=== PATIENT | female | born 1945 | race Caucasian/White ===

== ENCOUNTER 2021-02-23 09:22 | Inpatient (IN) ==
--- NOTE | 2020-12-24 16:01 | PAT Medication Instructions ---
Medication Instructions Date of Service December 24, 2020 Home Medications aspirin [Aspir-81] 81 mg PO QAM calcium carbonate-vitamin D3 [Caltrate 600 plus D] 1 tab PO QAM cholecalciferol (vitamin D3) [Vitamin D3] 50 mcg PO QAM cyanocobalamin (vitamin B-12) 500 mcg PO QAM ezetimibe 10 mg PO QAM gabapentin 100 mg PO BID metoprolol tartrate 25 mg PO BID dhpawdskictx-zxhsjsav-npkqev [Centrum Silver] 1 tab PO QAM pantoprazole 40 mg PO QAM pravastatin 20 mg PO QAM DO NOT take the morning of surgery calcium carbonate-vitamin D3 [Caltrate 600 plus D] 1 tab PO QAM cholecalciferol (vitamin D3) [Vitamin D3] 50 mcg PO QAM cyanocobalamin (vitamin B-12) 500 mcg PO QAM tzcprevdqxif-xatrymgq-lkqzvk [Centrum Silver] 1 tab PO QAM Take morning of surgery With a small sip of water, OTHERWISE NOTHING TO EAT OR DRINK AFTER MIDNIGHT: aspirin [Aspir-81] 81 mg PO QAM ezetimibe 10 mg PO QAM gabapentin 100 mg PO BID metoprolol tartrate 25 mg PO BID pantoprazole 40 mg PO QAM pravastatin 20 mg PO QAM Take evening before surgery gabapentin 100 mg PO BID metoprolol tartrate 25 mg PO BID Other Notes If you have any questions please call us at [phone] or [phone] or [phone] or [phone]
--- NOTE | 2020-12-30 12:40 | Anesthesiology Consultation ---
Date of Service December 30, 2020 Assessment & Plan (1) Encounter for pre-operative examination: Chart Review Chart Review: Pending: Refer to Additional Notes / Consult section (surgeon ordered cardio clearance on 01/05 and preop Covid testing ) and Patient seen in Pre Admission Testing Awaiting cardio clearance appt on 01/05/21 Per PAT appt on 12/30/20, patient denies any recent travel. No known Covid positive contacts or Covid related symptoms. Pt did have Covid infection in Sep 2020 (had cold symptoms- symptoms have since resolved). Preop Covid testing 01/19/21=will await results. Educated on importance of self quarantining, social distancing and wearing mask in public both for the patient and household contacts. Teaching & Discussion Pre-Anesthesia Teaching/Discussion Notes: Instructed NPO after midnight before surgery,except medications with 15 cc of water. Medication instructions provided according to the PAT guidelines. History Surgery Operation Date: 01/26/21 10:50 Proposed Procedures p Right Total Hip Arthroplasty Uncemted Anterior - Gabe Keller DO Height/Weight Height: 5 ft 7 in Weight: 85.5 kg Allergies Allergy/AdvReac Type Severity Reaction Status Date / Time ticagrelor [From Brilinta] Allergy Severe Difficulty Verified 12/22/20 08:33 Breathing Dyckcsq-Bsj-Agz Reductase Allergy Intermediate Cramping Verified 12/22/20 08:33 Inhibitor of the Muscles Medications Home Medications Medication Instructions Recorded Confirmed Last Taken aspirin [Aspir-81] 81 mg PO QAM 12/22/20 12/22/20 Unknown calcium carbonate-vitamin D3 1 tab PO QAM 12/22/20 12/22/20 Unknown [Caltrate 600 plus D] cholecalciferol (vitamin D3) 50 mcg PO QAM 12/22/20 12/22/20 Unknown [Vitamin D3] cyanocobalamin (vitamin B-12) 500 mcg PO QAM 12/22/20 12/22/20 Unknown ezetimibe 10 mg PO QAM 12/22/20 12/22/20 Unknown gabapentin 100 mg PO BID 12/22/20 12/22/20 Unknown metoprolol tartrate 25 mg PO BID 12/22/20 12/22/20 Unknown eluxcoyvkddt-cbfxsbsw-xckxco 1 tab PO QAM 12/22/20 12/22/20 Unknown [Centrum Silver] pantoprazole 40 mg PO QAM 12/22/20 12/22/20 Unknown pravastatin 20 mg PO QAM 12/22/20 12/22/20 Unknown Past Medical History Medical History (Updated 12/31/20 @ 07:42 by Lamar Licona PA-C) CAD (coronary artery disease) S/p 2 stents 2018 (LAD and diagonal) Per pt- 1-2 months after stents were placed- additional cath done- showing one of the stents did collapse but no intervention was needed GERD (gastroesophageal reflux disease) Well controlled and stable with med History of COVID-19 SEP 2020 Hyperlipidemia Hypertension Pt denies issues with BP- on Metoprolol due to CAD Osteoarthritis Exercise / Class Metabolic Activity II 4-5 Yardwork/Stairs/Walk up hill (one flight of stiars - no chest pain or SOB ) Past Family History Family History Grandmother Diabetes Past Surgical History Surgical History (Updated 12/30/20 @ 12:56 by Lamar Licona PA-C) History of cholecystectomy History of colonoscopy History of esophagogastroduodenoscopy (EGD) History of heart artery stent x2 in 2018 > [facility] History of lumbar fusion History of tonsillectomy History of tooth extraction Past Anesthesia History No Hx of Anesthesia Complications and No Family Hx of Anesthesia Complications History of PONV No Hx of PONV and No Hx of Motion Sickness Social History Smoking Status: Never smoker Do You Dip or Chew Tobacco: No Hx Alcohol Use: No Hx Substance Use: No substance use type: does not use Review of Systems Patient denies chest pain, shortness of breath, dyspnea on exertion, cough, wheezing, palpitations. No hx of seizures, stroke, apnea/snoring. No hx of blood clots or blood transfusions Physical Exam Vital Signs VITALS BP 116/74 P 63 TEMP 97.4 SP02 97% RESP 16 Constitutional no acute distress ENMT Mouth: no TMJ clicking Thyromental Distance: < 3.5 Finger Breadths (2.5) Mallampati Class: I Denies loose or missing teeth Neck + limited neck extension (moderate ) Respiratory normal respiratory effort; no respiratory distress Auscultation: lungs clear to auscultation bilaterally; no wheezes Cardiovascular Rate/Rhythm: regular rate and regular rhythm Heart Sounds: no murmur Vessels: no carotid bruit Musculoskeletal Spine: no pain with cervical ROM Extremities: extremities normal to inspection Psychiatric Orientation: alert Testing Laboratory Results 12/30/20 13:10 12/30/20 13:10 PT 10.1 Seconds (9.0-12.0) 12/30/20 13:10 INR 1.0 (0.9-1.1) 12/30/20 13:10 APTT 26.3 Seconds (21.0-31.0) 12/30/20 13:10 Hemoglobin A1c 5.6 % (4.5-5.6) 12/30/20 13:10 Urine Color Yellow 12/30/20 Unknown Urine Appearance Clear (Clear) 12/30/20 Unknown Urine pH 5.5 (4.5-7.5) 12/30/20 Unknown Ur Specific [place] 1.023 (1.000-1.030) 12/30/20 Unknown Urine Protein Negative (Negative) 12/30/20 Unknown Urine Glucose (UA) Negative (Negative) 12/30/20 Unknown Urine Ketones Trace (Negative) H 12/30/20 Unknown Urine Nitrite Negative (Negative) 12/30/20 Unknown Ur Leukocyte Esterase Negative (Negative) 12/30/20 Unknown Blood Type O Positive 12/30/20 13:10 Antibody Screen NEGATIVE 12/30/20 13:10 Electrocardiogram Date: 12/30/20 Findings: + NSR @ (63bpm) Nonspecific ST and T wave abnormality Chest X-Ray Date: 12/30/20 Findings: + NAD and + cardiomegaly (mild ) Superficial vascular calcifications are noted.
--- NOTE | 2020-12-30 13:49 | XRay Report ---
XR chest Pre-admission PA/Lat HISTORY: Preop. COMPARISON: None. FINDINGS: Superficial vascular calcifications are noted. There is an old mild superior endplate compr ession deformity within the upper thoracic spine. No pleural effusions. No pneumothorax. No focal tono g consolidations to suggest pneumonia. No evidence for pulmonary edema. The cardiac silhouette is mil dly enlarged. IMPRESSION: Mild cardiomegaly. Otherwise, no acute process within the chest. ACT 112: Negative or not required by law. Electronically signed by: All Kirkland M.D. 12/30/2020 1:48 PM
[2020-12-30 14:26] LABS: Basophils # (auto) 0.02 K/uL (0-0.2); Basophils % (auto) 0.3 %; Eosinophils # (auto) 0.12 K/uL (0-0.5); Hematocrit (blood only) 40.9 % (37-47); Hemoglobin 13.9 g/dL (12.0-16.0); Immature Granulocytes # (auto) 0.01 K/uL (0.00-0.02); Immature Granulocytes % (auto) 0.2 %; Lymphocytes # (auto) 1.87 K/uL (1.2-3.4); Lymphocytes % (auto) 31.9 %; Mean Corpuscular Hemoglobin 32.2 pg (25-34); Mean Corpuscular Volume 94.7 fL (80-100); Monocytes # (auto) 0.44 K/uL (0.11-0.59); Monocytes % (auto) 7.5 %; Neutrophils % (auto) 58.1 %; Platelet Count 249 K/uL (130-400); RDW Standard Deviation 48.4 fL (36.4-46.3); Red Blood Count 4.32 M/uL (4.2-5.4); White Blood Count 5.86 K/uL (4.8-10.8)
[2020-12-30 14:40] LABS: Partial Thromboplastin Time 26.3 Seconds (21.0-31.0); Prothrombin Time 10.1 Seconds (9.0-12.0)
--- NOTE | 2020-12-30 14:55 | Electrocardiogram Report ---
Test Reason : Blood Pressure : / mmHG Vent. Rate : 063 BPM Atrial Rate : 063 BPM P-R Int : 148 ms QRS Dur : 078 ms QT Int : 450 ms P-R-T Axes : 072 030 047 degrees QTc Int : 460 ms Normal sinus rhythm Nonspecific ST and T wave abnormality Abnormal ECG No previous ECGs available Confirmed by Walter Blackwell ([id number]) on 12/30/2020 2:55:03 PM Referred By: Gabe Keller Confirmed By:Walter Blackwell
[2020-12-30 14:58] LABS: Appearance Urine Clear (Clear); Bilirubin Urine Negative (Negative); Blood Urine Negative (Negative); Color Urine Yellow; Glucose Urine UA Negative (Negative); Ketones Urine Trace (Negative); Leukocyte Esterase Urine Negative (Negative); Nitrite Urine Negative (Negative); Protein Urine Negative (Negative); Specific Gravity Urine 1.023 (1.000-1.030); Urobilinogen Urine Negative (Negative); pH Urine 5.5 (4.5-7.5)
[2020-12-30 16:09] LABS: Albumin Level 3.9 gm/dl (3.4-5.0); BUN Creatinine Ratio 20.8 (10-20); Creatinine Clr Calc Pharmacy 64.8 ml/min; Est GFR (African American) 79.4; Est GFR (Non-African American) 68.5; Potassium 4.3 mmol/L (3.5-5.1)
[2020-12-31 05:38] LABS: Estimated Average Glucose 114 mg/dl; Hemoglobin A1C 5.6 % (4.5-5.6)
--- NOTE | 2021-01-21 19:15 | History & Physical Report ---
Date of Service January 26, 2021 Assessment & Plan (1) Degenerative joint disease of right hip: I have indicated the patient for right anterior total hip replacement. The risks, benefits and complications of surgery were explained to the patient which include but not limited to infection, acute blood loss, DVT/PE, injury to nerves, vessels, bone, soft tissue, arthrofibrosis, chronic pain, failure of the prosthesis, hip dislocation, leg length discrepancy, need for additional surgery, cardiac and pulmonary events and . The patient wished to proceed with surgery and informed consent was obtained at this time. We will plan for 81mg ASA BID post-operatively for DVT prophylaxis. Upon discharge the patient will be discharged home with home health services. Appropriate clearances by PCP and cardiology were obtained. History of Present Illness Chief Complaint: Right hip pain/DJD Primary Care Provider: PAULA Frank The patient is a 75 year old female who presents with complaints of severe right hip pain and DJD. The patient has failed outpatient conservative treatments to this point which included IA corticosteroid injection, home exercise/walking program. The patient's pain and limited function have progressed to the point where they severely hinder their activities of daily living and they no longer tolerate exercise programs. They are requesting to proceed with total hip replacement surgery. Allergies Allergy/AdvReac Type Severity Reaction Status Date / Time ticagrelor [From Brilinta] Allergy Severe Difficulty Verified 12/22/20 08:33 Breathing Vhwncps-Zpg-Nkv Reductase Allergy Intermediate Cramping Verified 12/22/20 08:33 Inhibitor of the Muscles Home Medications Medication Instructions Recorded Confirmed Type aspirin [Aspir-81] 81 mg PO QAM 12/22/20 12/22/20 History calcium carbonate-vitamin D3 1 tab PO QAM 12/22/20 12/22/20 History [Caltrate 600 plus D] cholecalciferol (vitamin D3) 50 mcg PO QAM 12/22/20 12/22/20 History [Vitamin D3] cyanocobalamin (vitamin B-12) 500 mcg PO QAM 12/22/20 12/22/20 History ezetimibe 10 mg PO QAM 12/22/20 12/22/20 History gabapentin 100 mg PO BID 12/22/20 12/22/20 History metoprolol tartrate 25 mg PO BID 12/22/20 12/22/20 History sftujskczodz-ypbzxgzx-arjupp 1 tab PO QAM 12/22/20 12/22/20 History [Centrum Silver] pantoprazole 40 mg PO QAM 12/22/20 12/22/20 History pravastatin 20 mg PO QAM 12/22/20 12/22/20 History Past Med/Surg History Medical History CAD (coronary artery disease) S/p 2 stents 11/2017 (prox RCA and mid LAD) Per records- on 12/2017- returned for PCI of diagonal branch with ELPIDIO; mid LAD stent had occluded from three weeks earlier- attempted to reopen but unsuccessful GERD (gastroesophageal reflux disease) Well controlled and stable with med History of COVID-19 SEP 2020 Hyperlipidemia Hypertension Pt denies issues with BP- on Metoprolol due to CAD Osteoarthritis Surgical History History of cholecystectomy History of colonoscopy History of esophagogastroduodenoscopy (EGD) History of heart artery stent x2 in 2017 > [facility] History of lumbar fusion History of tonsillectomy History of tooth extraction Family History Grandmother Diabetes Social History Smoking Status: Never smoker Second Hand Exposure: No; Do You Dip or Chew Tobacco: No; Tobacco Cessation Education Requested by Patient: No Hx Alcohol Use: No Hx Substance Use: No Preferred Language: Czech Communication Ability: Effective Staff Software Engineer Required: No Beliefs That Will Affect Care: None Current Living Situation: Spouse Other Information That Helps Us Care for You: No Feels Safe at Home: Yes Safety Concerns: Feels Safe At This Time Assistive Devices: Glasses Review of Systems Review of Systems: All systems reviewed & are unremarkable except as noted in HPI & below Constitutional: as per Subjective / HPI Physical Exam Physical Exam: RLE NVSI +EHL/FHL/TA/GS SILT grossly, +2 DP pulse, compartments soft NT, limited painful ROM of the hip, antalgic gait Constitutional: WD/WN, vitals as above Eyes: PERRL, conjunctivae normal, anicteric sclerae ENMT: external ear and nose normal, oropharynx normal Neck: trachea midline, no thyromegaly Respiratory: normal respiratory effort, lungs clear to auscultation Cardiovascular: RRR, no murmur, no edema Gastrointestinal (Abdomen): normal bowel sounds, soft, nontender, no hepatosplenomegaly Musculoskeletal: no cyanosis or clubbing, extremities motor strength 5/5 Skin: no rashes, warm and dry Neurologic: patellar DTR's 2+ bilat, sensation intact Psychiatric: A+Ox3, euthymic affect Lymphatic: no cervical or axillary lymphadenopathy Results & Data Results & Data ([facility]) Diagnostic Findings Multiple views of the hip demonstrates severe DJD with complete loss of the joint space. +osteophytes, +sclerosis, +subchondral cysts. Pre Admission Testing Addendum Laboratory Results 12/30/20 13:10 12/30/20 13:10 PT 10.1 Seconds (9.0-12.0) 12/30/20 13:10 INR 1.0 (0.9-1.1) 12/30/20 13:10 APTT 26.3 Seconds (21.0-31.0) 12/30/20 13:10 Hemoglobin A1c 5.6 % (4.5-5.6) 12/30/20 13:10 Urine Color Yellow 12/30/20 Unknown Urine Appearance Clear (Clear) 12/30/20 Unknown Urine pH 5.5 (4.5-7.5) 12/30/20 Unknown Ur Specific [place] 1.023 (1.000-1.030) 12/30/20 Unknown Urine Protein Negative (Negative) 12/30/20 Unknown Urine Glucose (UA) Negative (Negative) 12/30/20 Unknown Urine Ketones Trace (Negative) H 12/30/20 Unknown Urine Nitrite Negative (Negative) 12/30/20 Unknown Ur Leukocyte Esterase Negative (Negative) 12/30/20 Unknown Blood Type O Positive 12/30/20 13:10 Antibody Screen NEGATIVE 12/30/20 13:10
--- NOTE | 2021-02-21 09:52 | History & Physical Report ---
Date of Service February 23, 2021 Assessment & Plan (1) Degenerative joint disease of right hip: I have indicated the patient for right anterior total hip replacement. The risks, benefits and complications of surgery were explained to the patient which include but not limited to infection, acute blood loss, DVT/PE, injury to nerves, vessels, bone, soft tissue, arthrofibrosis, chronic pain, failure of the prosthesis, hip dislocation, leg length discrepancy, need for additional surgery, cardiac and pulmonary events and . The patient wished to proceed with surgery and informed consent was obtained at this time. We will plan for 81mg ASA BID post-operatively for DVT prophylaxis. Upon discharge the patient will be discharged home with home health services. Appropriate clearances by PCP and cardiology were obtained. History of Present Illness Chief Complaint: Right hip pain/DJD Primary Care Provider: PAULA Frank The patient is a 75 year old female who presents with complaints of severe right hip pain and DJD. The patient has failed outpatient conservative treatments to this point which included IA corticosteroid injection, home exercise/walking program. The patient's pain and limited function have progressed to the point where they severely hinder their activities of daily living and they no longer tolerate exercise programs. They are requesting to proceed with total hip replacement surgery. Allergies Allergy/AdvReac Type Severity Reaction Status Date / Time ticagrelor [From Brilinta] Allergy Severe Difficulty Verified 02/23/21 09:53 Breathing Gghpedz-Cjw-Bia Reductase Allergy Intermediate Cramping Verified 02/23/21 09:53 Inhibitor of the Muscles Home Medications Medication Instructions Recorded Confirmed Type aspirin [Aspir-81] 81 mg PO QAM 12/22/20 02/23/21 History calcium carbonate-vitamin D3 1 tab PO QAM 12/22/20 02/23/21 History [Caltrate 600 plus D] cholecalciferol (vitamin D3) 50 mcg PO QAM 12/22/20 02/23/21 History [Vitamin D3] cyanocobalamin (vitamin B-12) 500 mcg PO QAM 12/22/20 02/23/21 History ezetimibe 10 mg PO QAM 12/22/20 02/23/21 History gabapentin 100 mg PO BID 12/22/20 02/23/21 History metoprolol tartrate 25 mg PO BID 12/22/20 02/23/21 History fiazoypuybyq-icnawwol-rxkued 1 tab PO QAM 12/22/20 02/23/21 History [Centrum Silver] pantoprazole 40 mg PO QAM 12/22/20 02/23/21 History pravastatin 20 mg PO QAM 12/22/20 02/23/21 History Past Med/Surg History Medical History CAD (coronary artery disease) S/p 2 stents 11/2017 (prox RCA and mid LAD) Per records- on 12/2017- returned for PCI of diagonal branch with ELPIDIO; mid LAD stent had occluded from three weeks earlier- attempted to reopen but unsuccessful GERD (gastroesophageal reflux disease) Well controlled and stable with med History of COVID-19 SEP 2020 Hyperlipidemia Hypertension Pt denies issues with BP- on Metoprolol due to CAD Osteoarthritis Surgical History History of cholecystectomy History of colonoscopy History of esophagogastroduodenoscopy (EGD) History of heart artery stent x2 in 2017 > [facility] History of lumbar fusion History of tonsillectomy History of tooth extraction Family History Grandmother Diabetes Other No family history of adverse response to anesthesia Social History Smoking Status: Never smoker Second Hand Exposure: No; Do You Dip or Chew Tobacco: No; Tobacco Cessation Education Requested by Patient: No Hx Alcohol Use: No Hx Substance Use: No Preferred Language: Belarusian Communication Ability: Effective Buck Presser Required: No Beliefs That Will Affect Care: None Current Living Situation: Spouse Other Information That Helps Us Care for You: No Feels Safe at Home: Yes Safety Concerns: Feels Safe At This Time Assistive Devices: Glasses Review of Systems Review of Systems: All systems reviewed & are unremarkable except as noted in HPI & below Constitutional: as per Subjective / HPI Physical Exam Physical Exam: RLE NVSI +EHL/FHL/TA/GS SILT grossly, +2 DP pulse, compartments soft NT, limited painful ROM of the hip, antalgic gait Constitutional: WD/WN, vitals as above Eyes: PERRL, conjunctivae normal, anicteric sclerae ENMT: external ear and nose normal, oropharynx normal Neck: trachea midline, no thyromegaly Respiratory: normal respiratory effort, lungs clear to auscultation Cardiovascular: RRR, no murmur, no edema Gastrointestinal (Abdomen): normal bowel sounds, soft, nontender, no hep atosplenomegaly Musculoskeletal: no cyanosis or clubbing, extremities motor strength 5/5 Skin: no rashes, warm and dry Neurologic: patellar DTR's 2+ bilat, sensation intact Psychiatric: A+Ox3, euthymic affect Lymphatic: no cervical or axillary lymphadenopathy
[~2021-02-23 09:22] MED LIST: ACETAMINOPHEN 500 MG TAB PO SCH; BUPIVACAINE 0.5 % 5 MG/1 ML PF 10ML VIAL ONE; CeleBREX 200 MG CAP PO SCH; FAMOTIDINE 20 MG TAB PO SCH; GABAPENTIN 300 MG CAP PO SCH; LR 500ML BOLUS, THEN 15ML/HR IV SCH; METOCLOPRAMIDE HCL 10 MG TABLET PO SCH; ROPIVACAINE 0.5% HCL/PF 150 MG, BUPIVACAINE 0.75% MPF 20 ML, EPINEPHrine 30MG/30ML (OR ... INSTIL SCH; TRANEXAMIC ACID 1,000 MG **IV Intra-op IV SCH; TRANEXAMIC ACID 1,000 MG **IV Pre-op IV SCH; ceFAZolin 2000MG 2,000 MG/15 ML SYR IV SCH; oxyCODONE HCL 10 MG TABCR (OxyCONTIN) PO SCH
[2021-02-23] MEDS ORDERED: fentaNYL citrate 100 MCG/2 ML VIAL IV PRN (10:27)
[2021-02-23] MEDS ORDERED: ePHEDrine sulfate 50 MG/ML AMP IV PRN (10:27)
[2021-02-23] MEDS ORDERED: PHENYLEPHRINE 100MCG/ML 5ML SYR IV PRN (10:27)
[2021-02-23] MEDS ORDERED: ATROPINE SULFATE 0.1 MG/ML 10ML SYR IV PRN (10:27)
[2021-02-23] MEDS ORDERED: HYDROmorphone INJ 1 MG/ML SYRINGE IV PRN (10:27)
[2021-02-23] MEDS ORDERED: MEPERIDINE HCL 25 MG/ML CARP/VIAL IV PRN (10:27)
[2021-02-23] MEDS ORDERED: LABETALOL HCL IV 5 MG/ML 20ML IV PRN (10:27)
[2021-02-23] MEDS ORDERED: ONDANSETRON INJ 2 MG/ML 2 ML VIAL IV PRN ×2 (10:27→17:00)
[2021-02-23] MEDS ORDERED: MIDAZOLAM HCL 1 MG/ML 2ML VIAL ONE (12:08)
--- NOTE | 2021-02-23 12:48 | History & Physical Bridge Note ---
Date of Service February 23, 2021 History & Physical Bridge Note I have examined the patient, reviewed the History & Physical and in the interval since the performance of the History & Physical I have noted the following changes of clinical significance: no changes noted
[2021-02-23] MEDS ORDERED: PROPOFOL IV EMULSION 10 MG/ML 20 ML VIAL IV ONE (12:55)
[2021-02-23] MEDS ORDERED: ORTHO JOINT ANESTHETIC ONE (12:57)
--- NOTE | 2021-02-23 15:21 | Post Operative Brief Note ---
Immediate Post Op Note v1 Date of Surgery February 23, 2021 Pre & Post Diagnosis Operation Date: 01/26/21 11:25 <No data on this case meets the specified criteria> Operation Date: 02/23/21 11:55 Pre-Op Diagnosis: Osteoarthritis of Right Hip Post-Op Diagnosis: Osteoarthritis of Right Hip I identified the patient and participated in the time-out.: Yes Procedure Operation Date: 01/26/21 11:25 <No data on this case meets the specified criteria> Operation Date: 02/23/21 11:55 Actual Procedures p Right Anterior Total Hip Arthroplasty(Right) - Gabe Keller DO Surgeon Gabe Keller DO Fiscal Technician Shubham Maya Estimated Blood Loss 185 Findings Consistent with Post-Op Diagnosis Fluids See anesthesia report Specimens Femoral head Anesthesia Type Spinal MAC Complications none Disposition Disposition: Recovery Room Overlapping Procedure I was present for: the critical portions of procedure. I was immediately available: during the entire case. Back up surgeon: was not required during procedure.
--- NOTE | 2021-02-23 15:24 | Operative Report ---
Post Operative Report Pre & Post Diagnosis Operation Date: 01/26/21 11:25 <No data on this case meets the specified criteria> Operation Date: 02/23/21 11:55 Pre-Op Diagnosis: Osteoarthritis of Right Hip Post-Op Diagnosis: Osteoarthritis of Right Hip I identified the patient and participated in the time-out.: Yes Procedure Operation Date: 01/26/21 11:25 <No data on this case meets the specified criteria> Operation Date: 02/23/21 11:55 Actual Procedures p Right Anterior Total Hip Arthroplasty(Right) - Gabe Keller DO Surgeon Gabe Keller DO Merchandiser Retail Representative Shubham Maya Estimated Blood Loss 185 Findings Consistent with Post-Op Diagnosis Fluids See anesthesia report Specimens Femoral head Anesthesia Type Spinal MAC Complications none Disposition Disposition: Recovery Room Indications The patient is a 76-year-old female who presents with severe progressive right hip DJD who has failed outpatient conservative treatments. I indicated the patient for a anterior total hip replacement and the risks and benefits were explained in detail which include but not limited to infection, bleeding, blood clot, damage to surrounding bone, nerves, vessels, soft tissue, hip dislocation, failure of the prosthesis, leg length discrepancy, need for additional surgery and . The patient agreed to proceed with replacement of the hip and informed consent was obtained. Appropriate clearances were obtained. Description of Procedure COMPONENTS USED: [employer] hip system: Acetabulum size 54, femur size 11 extended offset, femoral head 36-3.5, liner 54x36, acetabular screw 30 mm x 1. DESCRIPTION OF PROCEDURE: Following satisfactory spinal anesthesia, the patient was placed supine on the OR table. The left leg was placed in the well leg mitchell and the right leg in the traction device. The right leg was prepared with ChloraPrep and draped sterilely. A surgical timeout was performed, patient identified and site lacy verified. Appropriate antibiotics were given. A standard anterior approach in the interval between the sartorius and tensor muscles was performed. Dissection was carried down through subcutaneous tissues. Electrocautery was utilized for hemostasis. Circumflex femoral vessels were identified, tied and ligated. The anterior capsular fat pad was removed and the capsulotomy was performed revealing the arthritic femoral neck and head. A femoral neck cut was made with reciprocating saw and the bone fragments removed. The acetabular self-retraining retractor was placed. Acetabular reaming was completed under fluoroscopic guidance, a 54 shell was impacted into an anatomic position and secured with a acetabular screw. Local anesthetic was placed and following irrigation, the polyethylene liner was placed. The femur was placed into position of external rotation, extension and adduction. Femoral canal was prepared up to the size 11 extended offset. Trial reduction with a 36-3.5 neck length head showed good soft tissue tension, leg lengths restored, and good fit and fill of the proximal canal using fluoroscopic landmarks. The hip was dislocated. The trial component was removed. The final implant was placed. The hip was irrigated with sterile saline solution and reduced. A Betadine soak was performed. After 3 minutes, the hip was once more irrigated with copious sterile saline solution with bacitracin. Taylor-incisional soft tissue was injected utilizing [place] [facility] which includes a combination of Ropivicaine 0.5% 150mg, Bupivicaine 0.5%/Epinephrine 1:200,000 30ml, Toradol 30mg, Dexamethasone 4mg, Ketamine 10mg, Clonidine 100mcg and NSS 30ml solution. The capsule was then closed with 1-0 Vicryl interrupted figure of eight sutures. The fascia was closed with a running suture of #1 Vicryl, the subcutaneous tissues with 2-0 Vicryl and the skin was closed with radha and a sterile dry dressing was applied which included vivek incisional VAC. The patient tolerated the procedure well and was transported to PACU in stable condition. Due to the complex nature of the procedure, the entire surgery was performed with the operational assistance of Shubham Maya PA-C. The visitor use assistant, under direct supervision, was involved in the actual performance of all aspects of the surgical procedure including patient positioning, hemostasis, tissue retraction, instrument management and wound closure. I attest to the content of the Intraoperative Record and any orders documented therein. Any exceptions are noted below.
--- NOTE | 2021-02-23 15:33 | Fluoroscopy Report ---
FL hip RT 1V CLINICAL HISTORY: RT ANTERIOR HIP COMPARISON STUDY: None. FLUOROSCOPY TIME: 32 seconds. FINDINGS: 2 fluoroscopic spot images of the right hip demonstrate a right total hip arthroplasty. The hardware is intact. No fracture or dislocation. IMPRESSION: Fluoroscopy provided for right total hip arthroplasty. ACT 112: Negative or not required by law. Electronically signed by: All Kirkland M.D. 02/23/2021 3:31 PM
--- NOTE | 2021-02-23 16:26 | Anesthesiology Progress Note ---
Date of Service February 23, 2021 Anesthesia Post Procedure Vital Signs Vital Signs: Temp Pulse Pulse Resp BP BP Pulse Ox 02/23/21 16:20 76 22 127/65 93 02/23/21 16:10 83 18 141/75 H 94 02/23/21 16:00 66 19 135/69 98 02/23/21 15:50 71 14 112/72 99 02/23/21 15:43 36.6 C 81 16 121/63 94 02/23/21 10:01 36.9 C 72 20 137/72 97 Transfer of Care Handoff Completed per policy Notes Mental Status: alert / awake / arousable Patient Amnestic to Procedure: Yes Nausea / Vomiting: adequately controlled Pain: adequately controlled Airway Patency, RR, SpO2: stable & adequate BP & HR: stable & adequate Hydration State: stable & adequate Neuraxial Anesthesia: was administered and sensory block is resolving Anesthetic Complications: no major complications apparent and Pt Satisfied with anesthetic care
[2021-02-23] MEDS ORDERED: MAGNESIUM HYDROXIDE SUSP 30 ML UDC PO PRN (17:00)
[2021-02-23] MEDS ORDERED: HYDROmorphone INJ 0.5 MG/0.5 ML SYR IV PRN (17:00)
[2021-02-23] MEDS ORDERED: oxyCODONE HCL IR 5 MG TAB (IMMEDIATE RELEASE) PO PRN (17:00)
[2021-02-23] MEDS ORDERED: NALOXONE HCL 0.4 MG/1 ML VIAL/CARP IV PRN (17:00)
[2021-02-23] MEDS ORDERED: METOCLOPRAMIDE HCL INJ 5 MG/ML 2 ML VIAL IV PRN (17:00)
[2021-02-23] MEDS ORDERED: bisacodyL 10 MG SUPP PR PRN (17:00)
[2021-02-23] MEDS ORDERED: diphenhydrAMINE Capsule 25 MG CAP PO PRN (17:00)
--- NOTE | 2021-02-23 17:08 | XRay Report ---
SINGLE VIEW PELVIS; SINGLE VIEW RIGHT HIP CLINICAL HISTORY: Postoperative examination. FINDINGS: An AP portable view of the hips and pelvis with a crosstable lateral portable view of the r ight hip are obtained. A bipolar right hip arthroplasty is in near-anatomic alignment. A single justin ical lag screw transfixes the acetabular cup. No acute fracture is identified. There are expected pos toperative changes overlying the right hip including skin clips, subcutaneous gas, and soft tissue sw elling. Mild degenerative changes noted in the left hip. Phleboliths are seen throughout the pelvis. Postoperative change is suggested in the sacrum. IMPRESSION: Expected postoperative findings status post right hip arthroplasty. No acute fracture is seen. ACT 112: Negative or not required by law. Electronically signed by: Mac Lamb M.D. 02/23/2021 5:07 PM
[2021-02-23] MEDS ORDERED: ONDANSETRON INJ 2 MG/ML 2 ML VIAL ONE (17:09)
[2021-02-23] MEDS: SODIUM CHLORIDE 0.9% 1000ML 1,000 ML IV SCH (17:11)
[2021-02-23] MEDS: KETOROLAC TROMETHAMINE 15 MG/ML VIAL IV SCH ×2 (17:59→22:51)
--- NOTE | 2021-02-23 18:06 | Orthopedic Progress Note ---
Date of Service February 23, 2021 Assessment & Plan (1) Degenerative joint disease of right hip: Status post right anterior total hip arthroplasty -Ancef x24 -DVT prophylaxis: SCDs, teds, 81 mg ASA twice daily -Weight-bear as tolerates right lower extremity -PT/OT -Postoperative x-ray demonstrates a well aligned well fixed prosthesis without fracture or dislocation -A.m. labs -DC planning Admission and Anticipated Discharge Date Admission Date: February 23, 2021 Subjective Post Operative Progress Note Patient seen sitting up in bed, comfortable, denies complaints, pain well controlled, no acute issues. Review of Systems Review of Systems: All systems reviewed & are unremarkable except as noted in HPI & below Constitutional: as per Subjective / HPI Physical Exam Physical Exam: RLE NVSI +EHL/FHL/TA/GS SILT grossly, +2 DP pulse, compartments soft NT, dressing cdi. Constitutional: WD/WN, vitals as above Results & Data ([facility]) Vital Signs (Past 12 Hours) Vital Signs Temp Pulse Pulse Resp BP BP Pulse Ox 02/23/21 17:45 70 16 124/69 93 02/23/21 17:14 36.4 C L 72 18 127/80 93 02/23/21 16:45 36.4 C L 78 20 126/80 92 02/23/21 16:30 36.5 C 77 18 136/70 93 02/23/21 16:20 76 22 127/65 93 02/23/21 16:10 83 18 141/75 H 94 02/23/21 16:00 66 19 135/69 98 02/23/21 15:50 71 14 112/72 99 02/23/21 15:43 36.6 C 81 16 121/63 94 02/23/21 10:01 36.9 C 72 20 137/72 97
--- NOTE | 2021-02-23 18:27 | Hospitalist Consultation ---
Date of Consultation February 23, 2021 Assessment & Plan (1) Degenerative joint disease of right hip: - POD#[address] Keller - activity and wound care orders as per ortho - pain control with bowel regimen - PT/OT - monitor H/H for acute blood loss anemia and transfuse blood products PRN - EBL 185 cc (2) CAD (coronary artery disease): -Appears stable, no reports of chest pain -Continue beta-steve and statin, on aspirin 81 twice daily per Ortho for DVT prophylaxis (3) GERD (gastroesophageal reflux disease): -Continue PPI (4) DVT prophylaxis: -Aspirin 81 mg twice daily as per orthopedics Thank you for this consultation. We will follow the patient with you during their hospital stay. You can reach a member of the [facility] Hospitalist Team 24/04 via the [facility] role in [place] [employer]. Supervising Physician Co-Signing Physician Notes I saw this patient with the Nurse Practitioner, I participated in the history, physical, review of systems, and physical exam on this consult. I reviewed the medications with the patient and the Nurse Practitioner. I helped take a detailed family and social history as well. I formulated the assessment and plan personally with the Nurse Practitioner went over it with the patient. ROS-No Headache, No Visual Changes, No Nausea, No Vomiting, No Fever, No Chills, No Neck Pain or Stiffness, No Chest Pain, No Palpitations, No SOB, No VASQUEZ, No Cough, No Sputum, No Wheezing, No Abdominal Pain, No Diarrhea, No Hematemesis, No Hemoptysis, No Unexpected Weight Loss, No Flank pain, No Melena, No Hematochezia, No Frequency, No Urgency, No Burning, No Hematuria, No Rashes, No Diaphoresis. Appetite is Normal Physical Exam Gen-AAO x 3, NAD, Afebrile Head-NCAT, EOMI, PERRLA, Anicteric Sclera, No Posterior Pharyngeal Erythema Neck-Supple, No JVD, No Thyromegaly, No Masses, No LAD, No Bruits Lungs-Clear to Auscultation Bilaterally, No Rales, No Rhonchi, No Wheezing, No Crepitus Chest-No S4, +S1, +S2, No S3, No Murmurs, No Rubs, No Gallops, No Ectopy Abdomen-Soft, Bowel Sounds Present, Non Tender, Non Distended, No Hepatomegaly, No Splenomegaly, No Palpable Masses, No Rebound, No Rigidity, No Guarding Musculoskeletal-Full Range of Motion Bilaterally, No CVAT Extremities-No Cyanosis, No Clubbing, No Edema Nuero-Cranial Nerves II-XII grossly intact, Motor WNL, DTRs WNL, Strength WNL, Non Focal Psych-Normal Mood History of Present Illness Reason for Consultation: Postop medical management Requesting Physician: Dr. Keller Attending Physician: Dr. Roche History of Present Illness 76-year-old female with PMH CAD, dyslipidemia, GERD, neuropathy, and other problems to below who is status post right total hip arthroplasty today by Dr. Keller. Postoperatively, the patient is doing well. She reports her pain is well controlled. She reports mild nausea and vomiting upon arriving to her room however those symptoms have resolved and she was able to tolerate a small amount for dinner. No abdominal pain. Denies chest pain or shortness of breath. No lightheadedness or dizziness. Reports mild residual tingling to the RLE. She has not voided since surgery. Allergies Allergy/AdvReac Type Severity Reaction Status Date / Time ticagrelor [From Brilinta] Allergy Severe Difficulty Verified 02/23/21 09:53 Breathing Ymguwvm-Bnf-Zqc Reductase Allergy Intermediate Cramping Verified 02/23/21 09:53 Inhibitor of the Muscles Home Medications Medication Instructions Recorded Confirmed Type aspirin [Aspir-81] 81 mg PO QAM 12/22/20 02/23/21 History calcium carbonate-vitamin D3 1 tab PO QAM 12/22/20 02/23/21 History [Caltrate 600 plus D] cholecalciferol (vitamin D3) 50 mcg PO QAM 12/22/20 02/23/21 History [Vitamin D3] cyanocobalamin (vitamin B-12) 500 mcg PO QAM 12/22/20 02/23/21 History ezetimibe 10 mg PO QAM 12/22/20 02/23/21 History gabapentin 100 mg PO BID 12/22/20 02/23/21 History metoprolol tartrate 25 mg PO BID 12/22/20 02/23/21 History phsucwtsbemo-xcwlpjcy-ekiojw 1 tab PO QAM 12/22/20 02/23/21 History [Centrum Silver] pantoprazole 40 mg PO QAM 12/22/20 02/23/21 History pravastatin 20 mg PO QAM 12/22/20 02/23/21 History Patient History Medical History (Updated 02/23/21 @ 18:25 by OLIVERIO Gates) CAD (coronary artery disease) S/p 2 stents 11/2017 (prox RCA and mid LAD) Per records- on 12/2017- returned for PCI of diagonal branch with ELPIDIO; mid LAD stent had occluded from three weeks earlier- attempted to reopen but unsuccessful GERD (gastroesophageal reflux disease) Well controlled and stable with med History of COVID-19 SEP 2020 Hyperlipidemia Hypertension Pt denies issues with BP- on Metoprolol due to CAD Osteoarthritis Surgical History History of cholecystectomy History of colonoscopy History of esophagogastroduodenoscopy (EGD) History of heart artery stent x2 in 2018 > [facility] History of lumbar fusion History of tonsillectomy History of tooth extraction Family History Grandmother Diabetes Other No family history of adverse response to anesthesia Social History Smoking Status: Never smoker Second Hand Exposure: No; Do You Dip or Chew Tobacco: No; Tobacco Cessation Education Requested by Patient: No Hx Alcohol Use: No Hx Substance Use: No Preferred Language: Irish Communication Ability: Effective Fan Balancer Required: No Beliefs That Will Affect Care: None Current Living Situation: Spouse Other Information That Helps Us Care for You: No Feels Safe at Home: Yes Safety Concerns: Feels Safe At This Time Assistive Devices: Glasses Review of Systems Review of Systems: ROS per HPI, all other systems reviewed and negative Physical Exam Constitutional: WD/WN, vitals as above Eyes: PERRL, conjunctivae normal, anicteric sclerae ENMT: external ear and nose normal, oropharynx normal Respiratory: normal respiratory effort, lungs clear to auscultation Cardiovascular: Rate/Rhythm: regular rate and regular rhythm Vessels: normal peripheral pulses Extremities: no edema Gastrointestinal (Abdomen): normal bowel sounds, soft, nontender, no hepatosplenomegaly Musculoskeletal: no cyanosis or clubbing, extremities motor strength 5/5 S/p right hip surgery, surgical dressing dry intact, CSM checks intact RLE Skin: no rashes, warm and dry Neurologic: PERRL, EOMI, accommodation nl, no face palsy, no dysarthria Psychiatric: A+Ox3, euthymic affect Results & Data Results & Data ([facility]) Vital Signs (Past 12 Hours) Vital Signs Temp Pulse Pulse Resp BP BP Pulse Ox 02/23/21 17:45 70 16 124/69 93 02/23/21 17:14 36.4 C L 72 18 127/80 93 02/23/21 16:45 36.4 C L 78 20 126/80 92 02/23/21 16:30 36.5 C 77 18 136/70 93 02/23/21 16:20 76 22 127/65 93 02/23/21 16:10 83 18 141/75 H 94 02/23/21 16:00 66 19 135/69 98 02/23/21 15:50 71 14 112/72 99 02/23/21 15:43 36.6 C 81 16 121/63 94 02/23/21 10:01 36.9 C 72 20 137/72 97
[2021-02-23] MEDS ORDERED: SENNA 8.6 MG TAB PO SCH (21:00)
[2021-02-23] MEDS: METOPROLOL TARTRATE 25 MG TAB PO SCH (21:09)
[2021-02-23] MEDS: DOCUSATE SODIUM 100 MG CAP PO SCH (21:10)
[2021-02-23] MEDS: ACETAMINOPHEN 500 MG TAB PO SCH (21:10)
[2021-02-23] MEDS: GABAPENTIN 100 MG CAP PO SCH (21:10)
[2021-02-23] MEDS: ceFAZolin 2000MG 2,000 MG/15 ML SYR IV SCH (21:11)
[2021-02-24] MEDS: KETOROLAC TROMETHAMINE 15 MG/ML VIAL IV SCH ×2 (05:36→12:22)
[2021-02-24] MEDS: ceFAZolin 2000MG 2,000 MG/15 ML SYR IV SCH (05:37)
[2021-02-24] MEDS: ACETAMINOPHEN 500 MG TAB PO SCH (05:37)
[2021-02-24] MEDS: SODIUM CHLORIDE 0.9% 1000ML 1,000 ML IV SCH (05:49)
[2021-02-24 06:30] LABS: Basophils # (auto) 0.01 K/uL (0-0.2); Basophils % (auto) 0.1 %; Hematocrit (blood only) 37.4 % (37-47); Hemoglobin 12.7 g/dL (12.0-16.0); Immature Granulocytes # (auto) 0.04 K/uL (0.00-0.02); Immature Granulocytes % (auto) 0.3 %; Lymphocytes # (auto) 1.04 K/uL (1.2-3.4); Lymphocytes % (auto) 7.3 %; Mean Corpuscular Hemoglobin 31.8 pg (25-34); Mean Corpuscular Volume 93.5 fL (80-100); Mean Platelet Volume 10.7 fL (7.4-10.4); Monocytes # (auto) 1.33 K/uL (0.11-0.59); Monocytes % (auto) 9.3 %; Neutrophils # (auto) 11.89 K/uL (1.4-6.5); Platelet Count 216 K/uL (130-400); RDW Coefficient of Variation 13.3 % (11.5-14.5); RDW Standard Deviation 45.7 fL (36.4-46.3); White Blood Count 14.31 K/uL (4.8-10.8)
[2021-02-24 07:00] LABS: BUN Creatinine Ratio 20.8 (10-20); Calcium 8.7 mg/dl (8.5-10.1); Creatinine Clr Calc Pharmacy 82.2 ml/min; Est GFR (African American) 99.8 ml/min; Est GFR (Non-African American) 86.1 ml/min
[2021-02-24] MEDS: DOCUSATE SODIUM 100 MG CAP PO SCH (08:22)
[2021-02-24] MEDS: GABAPENTIN 100 MG CAP PO SCH (08:23)
[2021-02-24] MEDS: METOPROLOL TARTRATE 25 MG TAB PO SCH (08:23)
[2021-02-24] MEDS ORDERED: ASPIRIN 81 MG ECTAB PO SCH (09:00)
[2021-02-24] MEDS ORDERED: PRAVASTATIN SOD 20 MG TAB PO SCH (09:00)
[2021-02-24] MEDS ORDERED: PANTOprazole 40 MG TAB PO SCH (09:00)
[2021-02-24] MEDS ORDERED: EZETIMIBE 10 MG TABLET PO SCH (09:00)
[2021-02-24] MEDS ORDERED: MULTIVITAMIN TAB PO SCH (09:00)
--- NOTE | 2021-02-24 09:16 | Anesthesiology Progress Note ---
Date of Service February 24, 2021 Anesthesia Post Procedure Vital Signs Vital Signs: Temp Pulse Pulse Pulse Resp BP BP 02/24/21 07:15 36.8 C 78 16 120/69 02/24/21 03:35 36.7 C 75 16 114/66 02/23/21 22:39 36.5 C 79 16 117/67 02/23/21 19:50 36.4 C L 82 16 106/66 02/23/21 18:45 36.7 C 72 16 117/71 02/23/21 17:45 70 16 124/69 02/23/21 17:14 36.4 C L 72 18 127/80 02/23/21 16:45 36.4 C L 78 20 126/80 02/23/21 16:30 36.5 C 77 18 136/70 02/23/21 16:20 76 22 127/65 02/23/21 16:10 83 18 141/75 H 02/23/21 16:00 66 19 135/69 02/23/21 15:50 71 14 112/72 02/23/21 15:43 36.6 C 81 16 121/63 02/23/21 10:01 36.9 C 72 20 137/72 Pulse Ox 02/24/21 07:15 92 02/24/21 03:35 90 02/23/21 22:39 92 02/23/21 19:50 93 02/23/21 18:45 93 02/23/21 17:45 93 02/23/21 17:14 93 02/23/21 16:45 92 02/23/21 16:30 93 02/23/21 16:20 93 02/23/21 16:10 94 02/23/21 16:00 98 02/23/21 15:50 99 02/23/21 15:43 94 02/23/21 10:01 97 Pain Intensity Right Hip: Pain Intensity: 2 Notes Mental Status: alert / awake / arousable and participated in evaluation Patient Amnestic to Procedure: Yes Nausea / Vomiting: adequately controlled Pain: adequately controlled Airway Patency, RR, SpO2: stable & adequate BP & HR: stable & adequate Hydration State: stable & adequate Neuraxial Anesthesia: was administered and sensory block resolved Anesthetic Complications: no major complications apparent
--- NOTE | 2021-02-24 09:29 | Orthopedic Progress Note ---
Date of Service February 24, 2021 Assessment & Plan (1) Degenerative joint disease of right hip: Postop day 1 status post right anterior total hip arthroplasty -Ancef x24 then discontinue -DVT prophylaxis: SCDs, teds, 81 mg ASA twice daily -Weight-bear as tolerates right lower extremity -PT/OT -Postoperative x-ray demonstrates a well aligned well fixed prosthesis without fracture or dislocation -A.m. labs as noted. Leukocytosis-mild this morning. Likely secondary to surgical stress and/or preoperative steroids. Patient is currently asymptomatic. -hgb 12.7 -DC planning-patient is planning for home health services upon discharge. Admission and Anticipated Discharge Date Admission Date: February 23, 2021 Supervising Physician Co-Signing Physician Notes Patient seen and examined, agree with above assessment and plan. Subjective Postop day 1 Patient currently sitting up in bed awake and alert. No complaints this morning. Pain is controlled. Denies shortness of breath, chest pain, lightheadedness. Review of Systems Review of Systems: All systems reviewed & are unremarkable except as noted in HPI & below Constitutional: as per Subjective / HPI Physical Exam Physical Exam: Ab dressing is clean, dry, and intact. Thigh is soft and nontender. Calves are soft nontender. Neurovascular intact. Toes are mobile; she has good dorsiflexion and plantarflexion of the right foot. Leg lengths appear equal. Results & Data ([facility]) Vital Signs (Past 12 Hours) Vital Signs Temp Pulse Pulse Resp BP BP Pulse Ox 02/24/21 07:15 36.8 C 78 16 120/69 92 02/24/21 03:35 36.7 C 75 16 114/66 90 02/23/21 22:39 36.5 C 79 16 117/67 92 Laboratory Results Laboratory Results WBC 14.31 K/uL (4.8-10.8) H 02/24/21 06:04 RBC 4.00 M/uL (4.2-5.4) L 02/24/21 06:04 Hgb 12.7 g/dL (12.0-16.0) 02/24/21 06:04 Hct 37.4 % (37-47) 02/24/21 06:04 MCV 93.5 fL (80-100) 02/24/21 06:04 MCH 31.8 pg (25-34) 02/24/21 06:04 MCHC 34.0 g/dL (32-36) 02/24/21 06:04 RDW Std Deviation 45.7 fL (36.4-46.3) 02/24/21 06:04 RDW Coeff of Dary 13.3 % (11.5-14.5) 02/24/21 06:04 Plt Count 216 K/uL (130-400) 02/24/21 06:04 MPV 10.7 fL (7.4-10.4) H 02/24/21 06:04 Immature Gran % (Auto) 0.3 % 02/24/21 06:04 Neut % (Auto) 83.0 % 02/24/21 06:04 Lymph % (Auto) 7.3 % 02/24/21 06:04 Emmet % (Auto) 9.3 % 02/24/21 06:04 Eos % (Auto) 0.0 % 02/24/21 06:04 Baso % (Auto) 0.1 % 02/24/21 06:04 Neut # (Auto) 11.89 K/uL (1.4-6.5) H 02/24/21 06:04 Lymph # (Auto) 1.04 K/uL (1.2-3.4) L 02/24/21 06:04 Emmet # (Auto) 1.33 K/uL (0.11-0.59) H 02/24/21 06:04 Eos # (Auto) 0.00 K/uL (0-0.5) 02/24/21 06:04 Baso # (Auto) 0.01 K/uL (0-0.2) 02/24/21 06:04 Immature Gran # (Auto) 0.04 K/uL (0.00-0.02) H 02/24/21 06:04 PT 10.1 Seconds (9.0-12.0) 12/30/20 13:10 INR 1.0 (0.9-1.1) 12/30/20 13:10 APTT 26.3 Seconds (21.0-31.0) 12/30/20 13:10 PTT Ratio 1.0 12/30/20 13:10 Sodium 140 mmol/L (136-145) 02/24/21 06:04 Potassium 4.0 mmol/L (3.5-5.1) 02/24/21 06:04 Chloride 110 mmol/L (98-107) H 02/24/21 06:04 Carbon Dioxide 25 mmol/L (21-32) 02/24/21 06:04 Anion Gap 5.0 (3-11) 02/24/21 06:04 BUN 13 mg/dl (7-18) 02/24/21 06:04 Creatinine 0.64 mg/dl (0.6-1.2) 02/24/21 06:04 Est Cr Clr Drug Dosing 82.2 ml/min 02/24/21 06:04 Est GFR ( Amer) 99.8 ml/min 02/24/21 06:04 Est GFR (Non-Af Amer) 86.1 ml/min 02/24/21 06:04 BUN/Creatinine Ratio 20.8 (10-20) H 02/24/21 06:04 Glucose 107 mg/dl (70-99) H 02/24/21 06:04 Estimat Average Glucose 114 mg/dl 12/30/20 13:10 Hemoglobin A1c 5.6 % (4.5-5.6) 12/30/20 13:10 Calcium 8.7 mg/dl (8.5-10.1) 02/24/21 06:04 Albumin 3.9 gm/dl (3.4-5.0) 12/30/20 13:10 Urine Color Yellow 12/30/20 Unknown Urine Appearance Clear (Clear) 12/30/20 Unknown Urine pH 5.5 (4.5-7.5) 12/30/20 Unknown Ur Specific [place] 1.023 (1.000-1.030) 12/30/20 Unknown Urine Protein Negative (Negative) 12/30/20 Unknown Urine Glucose (UA) Negative (Negative) 12/30/20 Unknown Urine Ketones Trace (Negative) H 12/30/20 Unknown Urine Blood Negative (Negative) 12/30/20 Unknown Urine Nitrite Negative (Negative) 12/30/20 Unknown Urine Bilirubin Negative (Negative) 12/30/20 Unknown Urine Urobilinogen Negative (Negative) 12/30/20 Unknown Ur Leukocyte Esterase Negative (Negative) 12/30/20 Unknown COVID-19 Eval Order Covid19 IDNow [facility] 02/23/21 09:39 SARS-CoV-2, RNA, NAAT NEGATIVE (NEGATIVE) 02/23/21 09:39 Blood Type O Positive 12/30/20 13:10 Antibody Screen NEGATIVE 12/30/20 13:10 Impressions Hip/Pelvis X-Ray 02/23/21 15:50 SINGLE VIEW PELVIS; SINGLE VIEW RIGHT HIP CLINICAL HISTORY: Postoperative examination. FINDINGS: An AP portable view of the hips and pelvis with a crosstable lateral portable view of the right hip are obtained. A bipolar right hip arthroplasty is in near-anatomic alignment. A single cortical lag screw transfixes the acetabular cup. No acute fracture is identified. There are expected postoperative changes overlying the right hip including skin clips, subcutaneous gas, and soft tissue swelling. Mild degenerative changes noted in the left hip. Phleboliths are seen throughout the pelvis. Postoperative change is suggested in the sacrum. IMPRESSION: Expected postoperative findings status post right hip arthroplasty. No acute fracture is seen. ACT 112: Negative or not required by law. Electronically signed by: Mac Lamb M.D. 02/23/2021 5:07 PM
--- NOTE | 2021-02-24 09:31 | Hospitalist Progress Note ---
Date of Service February 24, 2021 Assessment & Plan (1) Degenerative joint disease of right hip: - POD#[address] Keller - activity and wound care orders as per ortho - pain control with bowel regimen - PT/OT - monitor H/H for acute blood loss anemia and transfuse blood products PRN - current Hg 12.7, cont. to monitor while inpt (2) CAD (coronary artery disease): -Appears stable, no reports of chest pain -Continue beta-steve and statin, on aspirin 81 twice daily per Ortho for DVT prophylaxis (3) GERD (gastroesophageal reflux disease): -Continue PPI (4) DVT prophylaxis: -Aspirin 81 mg twice daily as per orthopedics Thank you for this consultation. We will follow the patient with you during their hospital stay. You can reach a member of the [facility] Hospitalist Team 24/04 via the [facility] role in [place] Text. Admission and Anticipated Discharge Date Admission Date: February 23, 2021 Subjective Patient seen in follow-up of right hip surgery Currently sitting up in bed, in no acute distress denies any fevers, chills, chest pain, shortness of breath, abdominal pain, nausea or vomiting She is urinating, however denies passing gas or having bowel movements yet Pain seems to be well controlled Review of Systems Review of Systems: All systems reviewed & are unremarkable except as noted in HPI & below Constitutional: no fever and no chills Respiratory: no cough and no dyspnea Cardiovascular: no chest pain and no palpitations Gastrointestinal: no abdominal pain and no vomiting Physical Exam Physical Exam: Constitutional: WD/WN, vitals as above Eyes: PERRL, EOMI, conjunctivae normal, anicteric sclerae ENMT: external ear and nose normal, oropharynx normal Respiratory: normal respiratory effort, lungs clear to auscultation Cardiovascular: Rate/Rhythm: regular rate and regular rhythm Vessels: normal peripheral pulses Extremities: no edema Gastrointestinal (Abdomen): normal bowel sounds, soft, nontender Musculoskeletal: extremities motor strength 5/5 S/p right hip surgery, surgical dressing dry intact, CSM checks intact RLE Skin: no rashes, warm and dry Neurologic: PERRL, EOMI, no face palsy, no dysarthria, moves extremities Psychiatric: A+Ox3, euthymic affect Results & Data Results & Data ([facility]) Vital Signs (Past 12 Hours) Vital Signs Temp Pulse Pulse Resp BP BP Pulse Ox 02/24/21 07:15 36.8 C 78 16 120/69 92 02/24/21 03:35 36.7 C 75 16 114/66 90 02/23/21 22:39 36.5 C 79 16 117/67 92 Laboratory Results 02/24/21 02/24/21 02/23/21 Range/Units 06:04 06:04 09:39 WBC 14.31 H (4.8-10.8) K/uL RBC 4.00 L (4.2-5.4) M/uL Hgb 12.7 (12.0-16.0) g/dL Hct 37.4 (37-47) % MCV 93.5 (80-100) fL MCH 31.8 (25-34) pg MCHC 34.0 (32-36) g/dL RDW Std Deviation 45.7 (36.4-46.3) fL RDW Coeff of Dary 13.3 (11.5-14.5) % Plt Count 216 (130-400) K/uL MPV 10.7 H (7.4-10.4) fL Immature Gran % (Auto) 0.3 % Neut % (Auto) 83.0 % Lymph % (Auto) 7.3 % [place] % (Auto) 9.3 % Eos % (Auto) 0.0 % Baso % (Auto) 0.1 % Neut # (Auto) 11.89 H (1.4-6.5) K/uL Lymph # (Auto) 1.04 L (1.2-3.4) K/uL [place] # (Auto) 1.33 H (0.11-0.59) K/uL Eos # (Auto) 0.00 (0-0.5) K/uL Baso # (Auto) 0.01 (0-0.2) K/uL Immature Gran # (Auto) 0.04 H (0.00-0.02) K/uL Sodium 140 (136-145) mmol/L Potassium 4.0 (3.5-5.1) mmol/L Chloride 110 H (98-107) mmol/L Carbon Dioxide 25 (21-32) mmol/L Anion Gap 5.0 (3-11) BUN 13 (7-18) mg/dl Creatinine 0.64 (0.6-1.2) mg/dl Est Cr Clr Drug Dosing 82.2 ml/min Est GFR ( Amer) 99.8 ml/min Est GFR (Non-Af Amer) 86.1 ml/min BUN/Creatinine Ratio 20.8 H (10-20) Glucose 107 H (70-99) mg/dl Calcium 8.7 (8.5-10.1) mg/dl COVID-19 Eval Order SARS-CoV-2, RNA, NAAT NEGATIVE (NEGATIVE) 02/23/21 Range/Units 09:39 WBC (4.8-10.8) K/uL RBC (4.2-5.4) M/uL Hgb (12.0-16.0) g/dL Hct (37-47) % MCV (80-100) fL MCH (25-34) pg MCHC (32-36) g/dL RDW Std Deviation (36.4-46.3) fL RDW Coeff of Dary (11.5-14.5) % Plt Count (130-400) K/uL MPV (7.4-10.4) fL Immature Gran % (Auto) % Neut % (Auto) % Lymph % (Auto) % [place] % (Auto) % Eos % (Auto) % Baso % (Auto) % Neut # (Auto) (1.4-6.5) K/uL Lymph # (Auto) (1.2-3.4) K/uL [place] # (Auto) (0.11-0.59) K/uL Eos # (Auto) (0-0.5) K/uL Baso # (Auto) (0-0.2) K/uL Immature Gran # (Auto) (0.00-0.02) K/uL Sodium (136-145) mmol/L Potassium (3.5-5.1) mmol/L Chloride (98-107) mmol/L Carbon Dioxide (21-32) mmol/L Anion Gap (3-11) BUN (7-18) mg/dl Creatinine (0.6-1.2) mg/dl Est Cr Clr Drug Dosing ml/min Est GFR ( Amer) ml/min Est GFR (Non-Af Amer) ml/min BUN/Creatinine Ratio (10-20) Glucose (70-99) mg/dl Calcium (8.5-10.1) mg/dl COVID-19 Eval [facility] SARS-CoV-2, RNA, NAAT (NEGATIVE) Medications Administered Current Inpatient Medications Acetaminophen (Acetaminophen 500 Mg Tab) 1,000 mg PO Q8 ALFIE Stop: 03/25/21 21:59 Last Admin: 02/24/21 05:37 Dose: 1,000 mg Documented by: Aspirin (Aspirin 81 Mg Ectab) 81 mg PO BID ALFIE Stop: 03/26/21 08:59 Last Admin: 02/24/21 08:23 Dose: 81 mg Documented by: Bisacodyl (Bisacodyl 10 Mg Supp) 10 mg MN DAILY PRN PRN Reason: Constipation Stop: 03/25/21 16:59 Celecoxib (Celebrex 200 Mg Cap) 200 mg PO BID ALFIE Stop: 03/26/21 20:59 Diphenhydramine HCl (Diphenhydramine Capsule 25 Mg Cap) 25 mg PO Q8H PRN PRN Reason: Itching Stop: 03/25/21 16:59 Docusate Sodium (Docusate Sodium 100 Mg Cap) 100 mg PO BID ALFIE Stop: 03/25/21 20:59 Last Admin: 02/24/21 08:22 Dose: 100 mg Documented by: Ezetimibe (Ezetimibe 10 Mg Tablet) 10 mg PO QAM ALFIE Stop: 03/26/21 08:59 Last Admin: 02/24/21 08:23 Dose: 10 mg Documented by: Gabapentin (Gabapentin 100 Mg Cap) 100 mg PO BID ALFIE Stop: 03/25/21 20:59 Last Admin: 02/24/21 08:23 Dose: 100 mg Documented by: Hydromorphone HCl (Hydromorphone Inj 0.5 Mg/0.5 Ml Syr) 0.5 mg IV Q4H PRN PRN Reason: Pain or Pre PT Stop: 03/09/21 16:59 Ketorolac Tromethamine (Ketorolac Tromethamine 15 Mg/Ml Vial) 15 mg IV Q6H ALFIE Stop: 02/24/21 12:01 Last Admin: 02/24/21 05:36 Dose: 15 mg Documented by: Magnesium Hydroxide (Magnesium Hydroxide Susp 30 Ml Udc) 30 ml PO Q6H PRN PRN Reason: Constipation Stop: 03/25/21 16:59 Metoclopramide HCl (Metoclopramide Hcl Inj 5 Mg/Ml 2 Ml Vial) 10 mg IV Q6H PRN PRN Reason: Nausea And Vomiting Stop: 03/25/21 16:59 Metoprolol Tartrate (Metoprolol Tartrate 25 Mg Tab) 25 mg PO BID REPLACED BY [facility] Stop: 03/25/21 20:59 Last Admin: 02/24/21 08:23 Dose: 25 mg Documented by: Multivitamins (Multivitamin Tab) [facility] Stop: 03/26/21 08:59 Last Admin: 02/24/21 08:23 Dose: 1 tab Documented by: Naloxone HCl (Naloxone Hcl 0.4 Mg/1 Ml Vial/Carp) 0.1 mg IV Q5M PRN PRN Reason: Oversedation/Resp Depression Stop: 03/25/21 16:59 Ondansetron HCl (Ondansetron Inj 2 Mg/Ml 2 Ml Vial) 4 mg IV Q6H PRN PRN Reason: Nausea And Vomiting Stop: 03/25/21 16:59 Last Admin: 02/23/21 21:39 Dose: 4 mg Documented by: Oxycodone HCl (Oxycodone Hcl Ir 5 Mg Tab (Immediate Release)) 5 - 10 mg PO Q4H PRN PRN Reason: Pain or Pre PT Stop: 03/09/21 16:59 Pantoprazole Sodium (Pantoprazole 40 Mg Tab) [facility] Stop: 03/26/21 08:59 Last Admin: 02/24/21 08:23 Dose: 40 mg Documented by: Pravastatin Sodium (Pravastatin Sod 20 Mg Tab) [facility] Stop: 03/26/21 08:59 Last Admin: 02/24/21 08:23 Dose: 20 mg Documented by: Sennosides (Senna 8.6 Mg Tab) 17.2 mg PO [facility] Stop: 03/25/21 20:59 Last Admin: 02/23/21 21:10 Dose: 17.2 mg Documented by:
[2021-02-24] MEDS ORDERED: CeleBREX 200 MG CAP PO SCH (21:00)
--- NOTE | 2021-02-27 13:33 | Discharge Summary ---
Date of Service February 27, 2021 Admission HPI Per Admitting Provider The patient is a 75 year old female who presents with complaints of severe right hip pain and DJD. The patient has failed outpatient conservative treatments to this point which included IA corticosteroid injection, home exercise/walking program. The patient's pain and limited function have progressed to the point where they severely hinder their activities of daily living and they no longer tolerate exercise programs. They are requesting to proceed with total hip replacement surgery. Principal Diagnosis Right anterior total hip replacement Discharge Exam RLE NVSI +EHL/FHL/TA/GS SILT grossly, +2 DP pulse, compartments soft NT, dressing cdi. Constitutional WD/WN, vitals as above Discharge Data Allergies Allergy/AdvReac Type Severity Reaction Status Date / Time ticagrelor [From Brilinta] Allergy Severe Difficulty Verified 02/23/21 09:53 Breathing Plxudbr-Tgo-Nbk Reductase Allergy Intermediate Cramping Verified 02/23/21 09:53 Inhibitor of the Muscles Consultations 02/18/21 09:27 Consult Hospitalist Routine Procedures Performed Operation Date: 01/26/21 11:25 <No data on this case meets the specified criteria> Operation Date: 02/23/21 11:55 Actual Procedures p Right Anterior Total Hip Arthroplasty(Right) - Gabe Keller DO Ordered Studies 02/23/21 11:55 FL hip RT 1V Routine Hospital Course (1) Degenerative joint disease of right hip: Hospital Course: On 02/23/21 the patient was taken to the operating room, adequate anesthesia administered and underwent a right anterior total hip arthroplasty. The patient tolerated the procedure well and was taken to the PACU in stable condition. Post-operatively the patient was started on a DVT ppx medication and given appropriate IV antibiotics. Consults were placed to physical therapy, occupational therapy and case management. On POD#1, the patient did well overnight and their pain was well controlled. Labs were drawn and the Hgb was 12.7. The patient progressed well with PT. Dressings were changed at this time and the incision was clean, dry and intact. The patients hospital stay was relatively uneventful and they were deemed stable by the orthopedic team and consultants to be discharged home with on 02/24/21. Discharge Instructions: Upon discharge the patient may weight bear as tolerates through their operative extremity. They were instructed to keep the incision clean and dry at all times. The patient may shower but should not submerge the incision, avoid bathing, pools and hot tubs. The patient was given a script for pain medication and should take as instructed. The patient was given a script for DVT ppx 81mg ASA BID and should take as directed. The patient was instructed to not drive or travel for long distances until cleared to do so. If the patient develops any symptoms of fevers, chills, nausea, vomiting, increased redness, swelling, pain or drainage from the surgical site, they should notify the office and/or proceed to the nearest emergency room. The patient should follow up in 10-14 days after surgery for their routine post-operative follow-up appointment and should call the office, to confirm the date and time. Postop day 1 status post right anterior total hip arthroplasty -Ancef x24 then discontinue -DVT prophylaxis: SCDs, teds, 81 mg ASA twice daily -Weight-bear as tolerates right lower extremity -PT/OT -Postoperative x-ray demonstrates a well aligned well fixed prosthesis without fracture or dislocation -A.m. labs as noted. Leukocytosis-mild this morning. Likely secondary to surgical stress and/or preoperative steroids. Patient is currently asymptomatic. -hgb 12.7 -DC planning-patient is planning for home health services upon discharge. Total Time Total Time Spent Total Time Spent (In Minutes): 30 Discharge Plan Discharge Items Patient Disposition: Home - Home Health Services Reason For Visit: Right hip DJD Discharge Diagnosis: Right anterior total hip replacement Condition on Discharge: Good Activity: Per Instructions section Lifting: Wait until after follow-up appointment Bathing: Keep incision dry Bathing Comment: No bathing, pools or hot tubs. Sexual Activity: Wait until after follow-up appointment Exercise/Sports: Wait until after follow-up appointment Driving/Machine Use: No driving. Weightbearing: Full weightbearing Non-emergency contact: Primary Care Provider and Surgeon Call non-emergency contact if: you have any medication questions, your symptoms worsen, your pain is not controlled, your pain is worsening, your pain is unusual for you, your pain is concerning for you, you have a fever, your temperature is above 101, your wound has increased redness, your wound has increased drainage and your wound pain has increased Follow-up/Referrals: Shirley Fonseca PA-C [Primary Care Provider] - Diet: Regular Addtl Attending Provider Instructions: ACTIVITY RECOMMENDATIONS: SELF CARE INSTRUCTIONS AFTER TOTAL HIP REPLACEMENT : Direct Anterior Approach Until the incision and soft tissues around your hip have healed, there is a possibility that the hip prosthesis could dislocate. A. Hip flexion ( Up & Down out of chair or steps ) may be difficult. This is normal. B. Numbness in front of the thigh is also normal for a few weeks. C. Use hand rails when walking on stairs. D. Wear low heeled shoes with non-slip soles. E. Be sure that your floors are free of things that could trip you - throw rugs, electrical cords, small objects. Avoid wet and waxed floors, especially with crutches and canes. F. Try to walk several times a day with rest periods between. G. Continue with all the exercises taught to you in the hospital. Again, make walking a part of your daily routine. SPECIAL CARE INSTRUCTIONS: VERY IMPORTANT TO READ AND REVIEW A. You may still be at risk for phlebitis and blood clots. 1. Wear surgical stockings (ANTONIO hose) for 2 weeks after surgery to improve circulation and reduce swelling. 2. Take Aspirin 81mg twice daily for 4 weeks or as directed by your doctor. This is your blood thinner. 3. High risk patients may be prescribed a stronger blood thinner if necessary. 4. If you are on Coumadin normally, your family doctor/fire engineer should monitor your blood work. Expect a phone call the day of or the day after bloodwork is drawn to adjust your dosage. B. You must take antibiotics before having dental work, bladder, bowel and other surgery. Your doctor will provide you with a permanent card to carry describing precautions. C. Call [facility] if you have a fever, redness or swelling around the incision, cloudy drainage from incision, or sudden increase in pain in your hip, not relieved by your regular pain medication. D. Please call the office at if you have any concerns or questions about your operation or recovery. * YOU MAY SHOWER, NO TUB BATHS UNTIL CLEARED BY YOUR DOCTOR. - Keep an extra close eye on the top portion of your incision. Be sure to keep clean & dry. * WEAR ANTONIO HOSE 20 HOURS PER DAY FOR 2 WEEKS. * YOU MAY PROGRESS FROM A WALKER, TO A CANE, TO INDEPENDENT AT YOUR OWN PACE. * MOST PATIENTS WILL HAVE HOME NURSING FOR THERAPY. IF YOU DECIDE TO DO OUTPATIENT PHYSICAL THERAPY, PLEASE SCHEDULE THIS 3 TIMES PER WEEK. *ZAYDA incisional vac is a special dressing covering your incision. This dressing provides a sterile dry environment while you are healing. The dressing is to be left in place for 7 days post-operatively. Your home nurse or surgeon will remove. If you develop any redness or blisters or have any questions notify your surgeon immediately. FOLLOW UP VISIT: If appointment is not already scheduled: Please call [facility] to make a follow-up appointment for 2 weeks after your surgery at . Pending Studies at Discharge: No Stand-Alone Forms: [facility] [place], Opioid Pain Management, Smoking Cessation Medications and DC Order Prescriptions: New celecoxib [Celebrex] 200 mg Capsule 200 mg PO BID PRN (Reason: pain/inflammation) Qty: 30 RF: 0 aspirin 81 mg Tablet,Delayed Release (Dr/Ec) 81 mg PO BID Qty: 56 RF: 0 acetaminophen 500 mg Tablet 1,000 mg PO Q8 PRN (Reason: pain/fevers) Qty: 90 RF: 0 oxycodone 5 mg Tablet 5 mg PO Q6H MDD 4 PRN (Reason: pain) Qty: 30 RF: 0 sennosides [Senokot] 8.6 mg Tablet 17.2 mg PO HS PRN (Reason: constipation) Qty: 30 RF: 0 Continued cyanocobalamin (vitamin B-12) 500 mcg Tablet 500 mcg PO QAM RF: 0 pantoprazole 40 mg Tablet,Delayed Release (Dr/Ec) 40 mg PO QAM RF: 0 pravastatin 20 mg Tablet 20 mg PO QAM RF: 0 gabapentin 100 mg Capsule 100 mg PO BID RF: 0 [id number] Tablet 1 tab PO QAM RF: 0 ezetimibe 10 mg Tablet 10 mg PO QAM RF: 0 metoprolol tartrate 25 mg Tablet 25 mg PO BID RF: 0 cholecalciferol (vitamin D3) [Vitamin D3] 50 mcg (2,000 unit) Capsule 50 mcg PO QAM RF: 0 Caltrate 600 plus D 600 mg (1,500 mg)-800 unit Tablet,Chewable 1 tab PO QAM RF: 0 Discontinued aspirin [Aspir-81] 81 mg Tablet,Delayed Release (Dr/Ec) 81 mg PO QAM RF: 0 Discharge Orders: Discharge Order (Routine); Ordered 02/24/21 Ordered By: Shubham Pardo/Other Patient Handouts: Preventing Deep Vein Thrombosis Admission Data Admit Date/Time: 02/23/21 15:50 Attending Provider: Gabe Keller Admit Provider: Gabe Keller Primary Care Provider: Shirley Fonseca Other Providers: Baljit Urbina ; [facility],Home [facility] Other Interventions: Discharge Summary Assessment (RN) Last Done: 02/24/21 11:06
== END 2021-02-24 13:11 | disposition home health service (06) | DRG 470 ==
LOC: ASU 09:22 → 3E 09:22 → OBSVTOIN 15:50